=== PATIENT | female | born 1990 | race Caucasian/White ===

== ENCOUNTER 2016-08-11 17:39 | Emergency (ER) | payer MEDICAID ==
[~2016-08-11] VITALS: Ht 157.5 cm; Wt 107.5 kg
[2016-08-11 20:23] VITALS: BP 132/84
== END 2016-08-11 20:23 | disposition home or self-care (01) ==
LOC: ED 17:39
DX: N39.0 Urinary tract infection, site not specified (principal); Z33.1 Pregnant state, incidental

== ENCOUNTER 2019-01-15 12:22 | Emergency (ER) | payer MEDICAID ==
[~2019-01-15] VITALS: Ht 157.5 cm; Wt 110.2 kg
[2019-01-15 12:32] VITALS: Ht 157.5 cm; Wt 110.2 kg
[2019-01-15 13:28] LABS: BASOPHIL % 0.3 % (0-2)
[2019-01-15 13:38] LABS: PLATELET COUNT 529 x10^3mcL (130-400); RED CELL DISTRIBUTION WIDTH 17.8 % (11.5-14.5)
[2019-01-15 13:39] LABS: CALCIUM 8.7 mg/dL (8.5-10.1); CARBON DIOXIDE 23.6 mmol/L (21-32); CHLORIDE SERUM 107 mmol/L (98-107); CREATININE SERUM 0.7 mg/dL (0.6-1.0); GFR1 > 60 mL/min; GLUCOSE SERUM 104 mg/dL (74-106); POTASSIUM SERUM 4.2 mmol/L (3.5-5.1); SODIUM SERUM 141 mmol/L (136-145)
[2019-01-15 13:43] LABS: ALBUMIN 3.8 g/dL (3.4-5.0); ALKALINE PHOSPHATASE 107 U/L (46-116); ALT/SGPT 36 U/L (14-59); AST/SGOT 34 U/L (15-37)
[2019-01-15 13:45] LABS: TOTAL PROTEIN, SERUM 8.4 g/dL (6.4-8.2)
[2019-01-15 13:46] LABS: rbc morphology (normal/abnorm) ABNORMAL (NORMAL)
[2019-01-15 13:55] LABS: FREE T4 1.43 ng/dL (0.76-1.46)
[2019-01-15 13:57] LABS: FREE THYROXINE INDEX 4.6 ug/dL (1.4-4.5); T4(THYROXINE) 14.7 ug/dL (4.7-13.3)
[2019-01-15 14:10] LABS: T3 TOTAL 1.51 ng/mL
[2019-01-15 16:15] LABS: AMPHETAMINE QUAL UR NONE DETECTED (See below)
[2019-01-15 19:40] VITALS: BP 135/76
== END 2019-01-15 19:40 | disposition home or self-care (01) ==
LOC: ED 12:22
PROVIDERS: Emergency Medicine
DX: F32.9 Major depressive disorder, single episode, unspecified (principal); N39.0 Urinary tract infection, site not specified; Z90.49 Acquired absence of other specified parts of digestive tract
CPT/HCPCS: 36415; 84439; G0480

== ENCOUNTER 2019-01-22 13:17 | Emergency (ER) | payer MEDICAID ==
[~2019-01-22] VITALS: Ht 157.5 cm; Wt 108.4 kg
[2019-01-22 13:29] VITALS: Ht 157.5 cm; Wt 108.4 kg
[2019-01-22 16:34] VITALS: BP 132/78
== END 2019-01-22 16:34 | disposition home or self-care (01) ==
LOC: ED 13:17
DX: R00.2 Palpitations (principal)

== ENCOUNTER 2019-02-12 20:39 | Emergency (ER) | payer MEDICAID ==
[~2019-02-12] VITALS: Ht 157.5 cm; Wt 108.4 kg
[2019-02-12 20:46] VITALS: Ht 157.5 cm; Wt 108.4 kg
[2019-02-12 22:03] VITALS: BP 130/90
== END 2019-02-12 22:03 | disposition home or self-care (01) ==
LOC: ED 20:39
DX: K29.70 Gastritis, unspecified, without bleeding (principal); R03.0 Elevated blood-pressure reading, without diagnosis of hypertension; Z90.49 Acquired absence of other specified parts of digestive tract